=== PATIENT | female | born 1985 | race Caucasian/White ===

== ENCOUNTER 2021-07-05 12:35 | Outpatient (REF) | payer MEDICAID, SELFPAY ==
[2021-07-07 21:36] LABS: IgA 309 mg/dL (47-310); IgG 1048 mg/dL (600-1640); IgM 214 mg/dL (50-300)
[2021-07-07 23:06] LABS: Anti Nuclear Antibody Screen POSITIVE (NEGATIVE)
[2021-07-12 17:16] LABS: Prot Elec - Albumin 4.5 g/dL (3.8-4.8); Prot Elec - Alpha1 0.3 g/dL (0.2-0.3); Prot Elec - Alpha2 0.6 g/dL (0.5-0.9); Prot Elec - Beta 1 0.5 g/dL (0.4-0.6); Prot Elec - Beta 2 0.3 g/dL (0.2-0.5); Prot Elec - Gamma 1.1 g/dL (0.8-1.7); Prot Elec - Total Protein 7.2 g/dL (6.1-8.1)
== END 2021-07-05 12:36 | disposition home or self-care (01) ==
LOC: HO.LAB 12:35
PROVIDERS: PCP Internal Medicine; Visit Provider Psychiatry & Neurology Neurology
DX: G62.9 Polyneuropathy, unspecified (principal)
CPT/HCPCS: 36415; 82784; 84165; 86038; 86039; 86334